=== PATIENT | female | born 1960 | race Caucasian/White ===

== ENCOUNTER 2017-08-17 22:21 | Emergency (ER) | payer BC ==
[2017-08-17] MEDS ORDERED: Morphine INJ* 4 MG/ML 1 ML CARPUJECT IV ONE (23:32)
[2017-08-17] MEDS ORDERED: Ondansetron INJ* 2 MG/ML VIAL IV ONE (23:42)
[2017-08-18 00:07] LABS: Hematocrit 42 % (35-47); Hemoglobin 14.2 g/dl (12.0-16.0); Mean Corpuscular HGB Conc 34 g/dl (31-36); Mean Corpuscular Hemoglobin 30 pg (27-31); Mean Corpuscular Volume 89 fL (80-97); Mean Platelet Volume 10 um3 (7.4-10.4); Red Blood Count 4.75 10^6/ul (4.0-5.4); Red Cell Distribution Width 13 % (10.5-15); White Blood Count 13.3 10^3/ul (3.5-10.8)
[2017-08-18 00:22] LABS: Albumin 4.3 g/dL (3.2-5.2); BUN/Creatinine Ratio 17.7 (8-20); Calcium 9.4 mg/dL (8.6-10.3); EGFR African American 76.5 (>60); EGFR Non-African American 59.5 (>60); Magnesium 2.1 mg/dL (1.9-2.7); Potassium 3.6 mmol/L (3.5-5.0); Total Bilirubin 0.5 mg/dL (0.2-1.0); Total Protein 7.3 g/dL (6.4-8.9)
[2017-08-18 01:35] LABS: Urine Bacteria 1+ (Absent); Urine Bilirubin Negative (Negative); Urine Glucose Negative (Negative); Urine Nitrite Negative (Negative)
[2017-08-18] MEDS ORDERED: cefTRIAXone(*) 1 GM in NS 0.9% 50 ML* 50 ML IVPB ONE (02:35)
--- NOTE | 2017-08-18 03:08 | ED ---
Jess Hughes Rebecca, scribed for Quinn Bojorquez MD on 08/17/17 at 2308 . Abdominal Pain/Female - HPI Summary HPI Summary: Pt is a 57 y/o F who presents to ED c/o RLQ pain with radiation to the R flank. Sx began today at 2100 and has been intermittent since onset. Initially for about 1 hour, pain was severe, ranked 8-9/10, though it has been intermittent. Sx aggravated and alleviated by nothing, unchanged by palpation. Additionally c/ o N/V with 2 episodes of emesis. Denies CP, LE pain, SOB, fever, dysuria, hematuria, difficulty urinating, hematemesis, vaginal bleeding and vaginal discharge. No prior similar episodes of symptoms. PSHx cholecystectomy due to the gallbladder being gangrenous - done in 1993 with no proceeding complications. - History of Current Complaint Chief Complaint: EDAbdPain Stated Complaint: RT ABD PAIN Hx Obtained From: Patient Onset/Duration: Lasting Hours, Still Present Severity Initially: Severe Pain Intensity: 8 Pain Scale Used: 0-10 Numeric Location: Discrete At: RLQ Radiates: Yes Radiates to: Flank - Right flank Aggravating Factor(s): Nothing Alleviating Factor(s): Nothing Associated Signs and Symptoms: Positive: Nausea, Vomiting. Negative: Fever, Vaginal Bleeding, Vaginal Discharge Allergies/Adverse Reactions: Allergies Allergy/AdvReac Type Severity Reaction Status Date / Time No Known Allergies Allergy Verified 08/17/17 22:30 PMH/Surg Hx/FS Hx/Imm Hx Endocrine/Hematology History: Denies: Hx Diabetes Cardiovascular History: Denies: Hx Coronary Artery Disease, Hx Hypercholesterolemia, Hx Hypertension - Cancer History Hx Chemotherapy: No Hx Radiation Therapy: No Infectious Disease History: No Infectious Disease History: Denies: Traveled Outside the [place] in Last 30 Days - Family History Known Family History: Negative: Diabetes - Social History Occupation: Employed Full-time Alcohol Use: Rare Smoking Status (MU): Never Smoked Tobacco Review of Systems Negative: Fever Negative: Chest Pain Negative: Shortness Of Breath Positive: Abdominal Pain, Vomiting, Nausea, Other - NEGATIVE: hematemesis Positive: pain - Right flank pain, other - NEGATIVE: Difficulty urinating . Negative: dysuria, hematuria Positive: Other - NEGATIVE: LE pain All Other Systems Reviewed And Are Negative: Yes Physical Exam Triage Information Reviewed: Yes Vital Signs On Initial Exam: Initial Vitals Temp Pulse Resp BP Pulse Ox 97.0 F 72 16 125/94 100 08/17/17 22:25 08/17/17 22:25 08/17/17 22:25 08/17/17 22:25 08/17/17 22:25 Vital Signs Reviewed: Yes Appearance: Positive: Well-Appearing Skin: Positive: Warm, Skin Color Reflects Adequate Perfusion Head/Face: Positive: Normal Head/Face Inspection Eyes: Positive: Normal ENT: Positive: Normal ENT inspection Neck: Positive: Supple Respiratory/Lung Sounds: Positive: Clear to Auscultation, Breath Sounds Present Cardiovascular: Positive: Normal, RRR Abdomen Description: Positive: Soft, Other: - Large upper abdominal surgical scar that is well healed with no sign of infection, mild RLQ tenderness, negative Rovsing's, Psoas and obturator's signs. Negative: CVA Tenderness (R), CVA Tenderness (L) Musculoskeletal: Positive: Normal, Strength/ROM Intact Neurological: Positive: Normal, Sensory/Motor Intact, Alert, Oriented to Person Place, Time Psychiatric: Positive: Normal Diagnostics - Vital Signs Vital Signs Temp Pulse Resp BP Pulse Ox 08/17/17 22:25 97.0 F 72 16 125/94 100 - Laboratory Lab Results: Lab Results 08/17/17 08/17/17 08/17/17 Range/Units 23:52 23:52 23:52 WBC 13.3 H (3.5-10.8) 10^3/ul RBC 4.75 (4.0-5.4) 10^6/ul Hgb 14.2 (12.0-16.0) g/dl Hct 42 (35-47) % MCV 89 (80-97) fL MCH 30 (27-31) pg MCHC 34 (31-36) g/dl RDW 13 (10.5-15) % Plt Count 227 (150-450) 10^3/ul MPV 10 (7.4-10.4) um3 Neut % (Auto) 80.5 (38-83) % Lymph % (Auto) 10.8 L (25-47) % Tripp % (Auto) 7.2 (1-9) % Eos % (Auto) 0.6 (0-6) % Baso % (Auto) 0.9 (0-2) % Absolute Neuts (auto) 10.7 H (1.5-7.7) 10^3/ul Absolute Lymphs (auto) 1.4 (1.0-4.8) 10^3/ul Absolute Monos (auto) 1.0 H (0-0.8) 10^3/ul Absolute Eos (auto) 0.1 (0-0.6) 10^3/ul Absolute Basos (auto) 0.1 (0-0.2) 10^3/ul Absolute Nucleated RBC 0 10^3/ul Nucleated RBC % 0 INR (Anticoag Therapy) 0.88 L (0.89-1.11) APTT 28.4 (26.0-36.3) seconds Sodium 137 (133-145) mmol/L Potassium 3.6 (3.5-5.0) mmol/L Chloride 103 (101-111) mmol/L Carbon Dioxide 25 (22-32) mmol/L Anion Gap 9 (2-11) mmol/L BUN 17 (6-24) mg/dL Creatinine 0.96 H (0.51-0.95) mg/dL Est GFR ( Amer) 76.5 (>60) Est GFR (Non-Af Amer) 59.5 (>60) BUN/Creatinine Ratio 17.7 (8-20) Glucose 111 H (70-100) mg/dL Calcium 9.4 (8.6-10.3) mg/dL Magnesium 2.1 (1.9-2.7) mg/dL Total Bilirubin 0.50 (0.2-1.0) mg/dL AST 29 (13-39) U/L ALT 29 (7-52) U/L Alkaline Phosphatase 51 (34-104) U/L Troponin I 0.00 (<0.04) ng/mL Total Protein 7.3 (6.4-8.9) g/dL Albumin 4.3 (3.2-5.2) g/dL Globulin 3.0 (2-4) g/dL Albumin/Globulin Ratio 1.4 (1-3) Amylase 38 (29-103) U/L Lipase 26 (11.0-82.0) U/L Urine Color Urine Appearance Urine pH (5-9) Ur Specific Terrell (1.010-1.030) Urine Protein (Negative) Urine Ketones (Negative) Urine Blood (Negative) Urine Nitrate (Negative) Urine Bilirubin (Negative) Urine Urobilinogen (Negative) Ur Leukocyte Esterase (Negative) Urine WBC (Auto) (Absent) Urine RBC (Auto) (Absent) Ur Squamous Epith Cells (Absent) Ur Transition Epith Cell (Absent) Ur Renal Epithelial Cell (Absent) Urine Bacteria (Absent) Urine Glucose (Negative) Blood Type Antibody Screen 08/17/17 08/18/17 Range/Units 23:52 00:50 WBC (3.5-10.8) 10^3/ul RBC (4.0-5.4) 10^6/ul Hgb (12.0-16.0) g/dl Hct (35-47) % MCV (80-97) fL MCH (27-31) pg MCHC (31-36) g/dl RDW (10.5-15) % Plt Count (150-450) 10^3/ul MPV (7.4-10.4) um3 Neut % (Auto) (38-83) % Lymph % (Auto) (25-47) % Tripp % (Auto) (1-9) % Eos % (Auto) (0-6) % Baso % (Auto) (0-2) % Absolute Neuts (auto) (1.5-7.7) 10^3/ul Absolute Lymphs (auto) (1.0-4.8) 10^3/ul Absolute Monos (auto) (0-0.8) 10^3/ul Absolute Eos (auto) (0-0.6) 10^3/ul Absolute Basos (auto) (0-0.2) 10^3/ul Absolute Nucleated RBC 10^3/ul Nucleated RBC % INR (Anticoag Therapy) (0.89-1.11) APTT (26.0-36.3) seconds Sodium (133-145) mmol/L Potassium (3.5-5.0) mmol/L Chloride (101-111) mmol/L Carbon Dioxide (22-32) mmol/L Anion Gap (2-11) mmol/L BUN (6-24) mg/dL Creatinine (0.51-0.95) mg/dL Est GFR ( Amer) (>60) Est GFR (Non-Af Amer) (>60) BUN/Creatinine Ratio (8-20) Glucose (70-100) mg/dL Calcium (8.6-10.3) mg/dL Magnesium (1.9-2.7) mg/dL Total Bilirubin (0.2-1.0) mg/dL AST (13-39) U/L ALT (7-52) U/L Alkaline Phosphatase (34-104) U/L Troponin I (<0.04) ng/mL Total Protein (6.4-8.9) g/dL Albumin (3.2-5.2) g/dL Globulin (2-4) g/dL Albumin/Globulin Ratio (1-3) Amylase (29-103) U/L Lipase (11.0-82.0) U/L Urine Color Yellow Urine Appearance Cloudy Urine pH 7.0 (5-9) Ur Specific Terrell 1.010 (1.010-1.030) Urine Protein 1+(30 mg/dl) H (Negative) Urine Ketones Negative (Negative) Urine Blood 3+ H (Negative) Urine Nitrate Negative (Negative) Urine Bilirubin Negative (Negative) Urine Urobilinogen Negative (Negative) Ur Leukocyte Esterase 3+ H (Negative) Urine WBC (Auto) 3+(>20/hpf) H (Absent) Urine RBC (Auto) 3+(>10/hpf) H (Absent) Ur Squamous Epith Cells Present H (Absent) Ur Transition Epith Cell Present H (Absent) Ur Renal Epithelial Cell Present H (Absent) Urine Bacteria 1+ H (Absent) Urine Glucose Negative (Negative) Blood Type A Positive Antibody Screen Negative Result Diagrams: 08/17/17 23:52 08/17/17 23:52 Lab Statement: Any lab studies that have been ordered have been reviewed, and results considered in the medical decision making process. - CT CT Abd/Pel CT Interpretation: Positive (See Comments) - Positive for a 2 mm obstructing right proximal to mid ureteral stone causing very mild right hydronephrosis/ hydroureter. No left urinary tract stone or obstruction. Negative for appendicitis. Normal appendix visualized. No bowel obstruction, free air, or free fluid. Negative for diverticulitis or colitis. Abundant stool in the colon. No acute abnodmalities of the liver, spleen, pancreas or adrenal glands. Prior cholecystectomy. ED physician reviewed radiology report and agrees. CT Interpretation Completed By: Radiologist Re-Evaluation - Re-Evaluation First Eval Re-Evaluation Time: 00:51 Comment: Pt is doing well. Answered any questoins the pt had. Second Eval Re-Evaluation Time: 02:41 Abdominal Pain Fem Course/Dx - Course Course Of Treatment: pt seen to have 2mm R sided stone with mild hydro with UTI. pt given 1g ceftraixone and arranged [facility], no coverage tonight. I spoke with patient who agrees with plan. - Diagnoses Provider Diagnoses: Right nephrolithiasis, Hydronephrosis, UTI (urinary tract infection) - Provider Notifications Discussed Care Of Patient With: [facility] Time Discussed With Above Provider: 02:46 Instructed by Provider To: Other - Pt is accepted for transfer, Dr. Dewitt is accepting physician. 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 Discharge - Discharge Plan Condition: Stable Disposition: TRANS HIGHER LVL OF CARE FAC The documentation as recorded by the Jess medina Rebecca accurately reflects the service I personally performed and the decisions made by me, Quinn Bojorquez MD.
[2017-08-18] MEDS ORDERED: Morphine INJ* 4 MG/ML 1 ML CARPUJECT ONE (03:38)
[2017-08-18] MEDS ORDERED: Morphine INJ* 4 MG/ML 1 ML CARPUJECT IV ONE (03:39)
[2017-08-18 03:45] VITALS: BP 117/45
--- NOTE | 2017-08-18 08:23 | RAD ---
INDICATION: Right lower quadrant pain. History of cholecystectomy. COMPARISON: None TECHNIQUE: Noncontrast axial source images were obtained from the hemidiaphragms to the symphysis pubis. This examination was ordered using a renal stone protocol which is performed without oral or intravenous contrast and therefore has inherent limitations when used to evaluate other intra-abdominal or intrapelvic pathology. Consider conventional contrast enhanced imaging if clinically . Lung bases: The lung bases are clear. Liver: The liver is normal in size. Noncontrast imaging shows no evidence of a hepatic mass or ductal dilatation. Gallbladder: Cholecystectomy. Spleen: The spleen is normal in size. The noncontrast CT appearance is normal. Pancreas: Noncontrast imaging shows no pancreatic mass or ductal dilitation. Adrenal glands: No masses are identified. Kidneys/Bladder: There is a 3 mm proximal right ureteral calculus with minor right-sided hydronephrosis. There is mild right-sided perinephric stranding. There are no other calcifications of urinary significance. The noncontrast CT appearance the kidneys otherwise unremarkable. Adenopathy: There is no evidence of intraperitoneal or retroperitoneal adenopathy. Evaluation is limited without oral contrast. Fluid collections: There are no free or localized fluid collections. Vessels: The aorta and iliac vessels are normal in caliber. There are no significant atherosclerotic changes. The IVC appears normal Pelvic organs: The uterus and adnexa appear normal GI tract: Evaluation of the bowel is limited without oral contrast. The stomach, small bowel, and lower GI tract appear grossly normal. There are no obstructive findings. The appendix is visualized and appears normal. Soft tissues: There is mild diastases of the rectus abdominis musculature with a tiny fat-containing periumbilical hernia. Osseous structures: There are no acute osseous findings. IMPRESSION: 3 MM PROXIMAL RIGHT URETERAL CALCULUS WITH MINOR OBSTRUCTIVE FINDINGS
== END 2017-08-18 03:47 | disposition short-term general hospital (02) ==
LOC: ED 22:21
DX: N13.30 Unspecified hydronephrosis (principal); N39.0 Urinary tract infection, site not specified; N20.0 Calculus of kidney; Z90.49 Acquired absence of other specified parts of digestive tract; R10.31 Right lower quadrant pain; R11.2 Nausea with vomiting, unspecified
CPT/HCPCS: 36415; 74176; 80053; 81003; 81015; 82150; 83690; 83735; 84484; 85025; 85610; 85730; 86850; 86900; 86901; 87086; 96374; 96375; 99285; J0696; J2270; J2405